=== PATIENT | male | born 1950 | race Caucasian/White ===

== ENCOUNTER 2022-07-10 21:35 | Emergency (ER) | payer MEDICARE, BC ==
[~2022-07-10] VITALS: Ht 170.2 cm; Wt 86.2 kg
--- NOTE | 2022-07-10 22:00 | NUR ---
TO ER BED 2. BIBS C/O PAINFUL URINATION X2 DAYS. PT IS ALERT AND ORIENTED. CONNECTED TO MONITOR. RR EVEN AND NON LABORED. URINE SAMPLE COLLECTED AND SENT TO LAB. AWAITING MD ORDERS.
[2022-07-10 22:40] LABS: BILIRUBIN,URINE NEGATIVE (NEGATIVE); COLOR,URINE DARK YELLOW (YELLOW); LEUKOCYTE ESTERASE ,URINE NEGATIVE (NEGATIVE); NITRITE, URINE POSITIVE (NEGATIVE); PROTEIN,URINE NEGATIVE (NEGATIVE); UGLUCOSE NEGATIVE (NEGATIVE)
[2022-07-10 22:42] LABS: BACTERIA,URINE Few /HPF (None Seen); RBC,URINE 0-2 /HPF (0-2); SQUAMOUS EPITHELIAL CELL,UR Rare /HPF (None Seen); WBC,URINE 0-2 /HPF (0-3)
[2022-07-10] MEDS ORDERED: CIPROFLOXACIN HCL 500 MG TABLET ONE (22:42)
[2022-07-10] MEDS ORDERED: CIPR-262 PO (22:54)
[2022-07-10] MEDS ORDERED: CIPROFLOXACIN HCL 250 MG TABLET PO ONE (23:00)
--- NOTE | 2022-07-10 23:00 | NUR ---
Patient discharged to home in stable condition. Written and verbal after care instructions given. Patient verbalizes understanding of instruction.
[2022-07-10 23:01] VITALS: BP 147/70
== END 2022-07-10 23:03 | disposition home or self-care (01) ==
LOC: ER 21:41
DX: R30.0 Dysuria (principal); N30.90 Cystitis, unspecified without hematuria; Z60.2 Problems related to living alone; Z79.899 Other long term (current) drug therapy
CPT/HCPCS: 81001; 87086-TC